=== PATIENT | male | born 1980 | race Caucasian/White ===

== ENCOUNTER 2025-02-26 12:13 | Emergency (ER) | payer OTHER | END 2025-02-26 15:25 | disposition home or self-care (01) | LOC: JP.ED 12:13 | DX: S82.832A Other fracture of upper and lower end of left fibula, initial encounter for closed fracture (principal); X58.XXXA Exposure to other specified factors, initial encounter | CPT/HCPCS: 73610-26-LT; 73610-LT; 99283 ==